=== PATIENT | male | born 1970 | race Caucasian/White ===

== ENCOUNTER 2018-05-10 10:37 | Emergency (ER) | payer OTHER ==
[~2018-05-10] VITALS: Ht 185.4 cm; Wt 106.6 kg
[2018-05-10 11:22] VITALS: BP 132/102
[2018-05-10] MEDS ORDERED: CELEXA40 MG PO (11:25)
[2018-05-10] MEDS ORDERED: CLEOCIN HCL150 MG PO (12:23)
== END 2018-05-10 13:13 | disposition home or self-care (01) ==
LOC: ER 10:37
DX: L03.114 Cellulitis of left upper limb (principal)